=== PATIENT | male | born 1985 | race Caucasian/White ===

== ENCOUNTER 2016-12-12 16:11 | Emergency (ER) | payer MEDICAID ==
[~2016-12-12] VITALS: Ht 188 cm; Wt 81.6 kg
[2016-12-12 16:37] VITALS: BP_SYST 129
[2016-12-12] MEDS ORDERED: KETOROLAC TROMETHAMINE 60 MG/2 ML VIAL IM ONE (17:45)
[2016-12-12 18:10] VITALS: BP_SYST 122
== END 2016-12-12 18:10 | disposition home or self-care (01) ==
LOC: SED 16:11
DX: L03.116 Cellulitis of left lower limb (principal)
CPT/HCPCS: 96372; 99283; J1885